=== PATIENT | female | born 1975 | race Caucasian/White ===

== ENCOUNTER 2020-05-01 14:22 | Emergency (ER) | payer OTHER ==
[~2020-05-01] VITALS: Ht 162.6 cm; Wt 70.3 kg
[~2020-05-01 14:22] MED LIST: APAP500 PO; IBUPROFEN 600600 M1 PO; KEFLEX500 MG PO; LORTAB 5 MG/5001 TA1 PO; NORCO 5-325 TA1 EACH PO; PRENATAL
[2020-05-01] MEDS ORDERED: OMEPRAZOLE 20 M20 M1 PO (14:44)
[2020-05-01] MEDS ORDERED: CLARITIN10 MG PO (14:44)
[2020-05-01] MEDS ORDERED: PROZAC 10 MG CA10 MG PO (14:44)
[2020-05-01 15:29] LABS: URINE BILIRUBIN NEGATIVE (Negative); URINE BLOOD TRACE (Negative); URINE CLARITY CLEAR; URINE COLOR YELLOW; URINE GLUCOSE-RANDOM NEGATIVE (Negative); URINE KETONES 1+ (Negative); URINE LEUKOCYTES-REFLEX NEGATIVE (Negative); URINE NITRITE-REFLEX NEGATIVE (Negative); URINE PROTEIN NEGATIVE (Negative); URINE UROBILINOGEN 0.2 E.U./dl (0.2-1.0)
[2020-05-01 15:58] LABS: ABSOLUTE EOSINOPHILS 0.1 thou/uL (0.0-0.7); ABSOLUTE LYMPHOCYTES 1.5 thou/uL (0.8-5.3); ABSOLUTE MONOCYTES 0.5 thou/uL (0.0-1.2); ABSOLUTE NEUTROPHILS 3.9 thou/uL (1.6-8.1); BASOPHILS 0.7 %; EOSINOPHILS 0.9 %; HEMATOCRIT 41.5 % (37.0-47.0); HEMOGLOBIN 14.7 gm/dL (12.0-15.0); MCH 34.9 pg (26.0-34.0); MCHC 35.5 g/dL (28.0-37.0); MCV 98.2 fL (80.0-100.0); MONOCYTES 8.6 %; NUCLEATED RBCS 0 /100WBC; PLATELET COUNT* 224 thou/uL (150-400); POLYS 64.8 %; RBC 4.23 mil/uL (4.20-5.00); RDW-CV 13.5 % (10.5-14.5)
[2020-05-01 16:07] LABS: CALCIUM 9.5 mg/dL (8.5-10.1); POTASSIUM 3.9 mmol/L (3.5-5.1)
[2020-05-01 16:13] LABS: ALBUMIN 4.1 g/dL (3.4-5.0); TOTAL BILIRUBIN 0.8 mg/dL (<0.1-1.0); TOTAL PROTEIN 7.8 g/dL (6.4-8.2)
[2020-05-01] MEDS ORDERED: CLONIDINE HCL0.1 M1 PO (16:50)
[2020-05-01 17:13] VITALS: BP 147/101
--- NOTE | 2020-05-02 10:41 | EKG ---
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
== END 2020-05-01 17:14 | disposition home or self-care (01) ==
LOC: M.ERS 14:22
PROVIDERS: Nurse Practitioner Family
DX: R03.0 Elevated blood-pressure reading, without diagnosis of hypertension (principal); R20.0 Anesthesia of skin; R20.2 Paresthesia of skin; F41.9 Anxiety disorder, unspecified; Z88.0 Allergy status to penicillin; Z79.899 Other long term (current) drug therapy